=== PATIENT | female | born 1985 | race Two or more races ===

== ENCOUNTER 2017-03-11 05:11 | Day surgery (SDC) | payer OTHER ==
[2017-03-11] VITALS (11 sets, daily range): BP systolic 120–147; BP diastolic 72–81; PULSE 58–72; RESP 10–18; Ht 165.1 cm; Wt 87.2 kg
[~2017-03-11] VITALS: Ht 165.1 cm; Wt 87.2 kg
[2017-03-11] MEDS ORDERED: HYDR200T5 PO (06:54)
[2017-03-11] MEDS ORDERED: SULF1TAB31 PO (06:54)
[2017-03-11] MEDS ORDERED: SOD CHLORIDE 0.9% 1,000 ML IV SCH (06:55)
--- NOTE | 2017-03-11 06:55 | HPN ---
Date/Time of Note Date/Time of Note DATE: 03/11/17 TIME: 06:54 Interval H&P Admission Note Pt. seen H&P reviewed: No system changes LULA WYATT MD Mar 11, 2017 06:54
[2017-03-11] MEDS ORDERED: ONDANSETRON 4 MG INJ IV PRN (07:00)
[2017-03-11] MEDS ORDERED: OXYCODONE/ACETAMINOPHEN (5/325) TAB PO PRN ×2 (07:00)
[2017-03-11] MEDS ORDERED: CEFAZOLIN 1 GM INJ ONE (07:00)
[2017-03-11] MEDS ORDERED: morphine 2 MG INJ IV PRN (07:00)
[2017-03-11] MEDS ORDERED: MIDAZOLAM 1 MG/ML 2 ML INJ ONE (07:05)
[2017-03-11] MEDS ORDERED: ROPIVACAINE 0.5 % 30 ML VIAL ONE ×3 (07:07→11:02)
[2017-03-11] MEDS ORDERED: POLYMYXIN/BACITRACIN 1L IRRIG ONE ×2 (09:21→10:06)
[2017-03-11] MEDS ORDERED: POVIDONE IODINE 10% 28.4 GM OINT ONE ×2 (09:21→11:02)
[2017-03-11] MEDS ORDERED: FENTAnyl 50 MCG/ML VIAL ONE ×2 (10:02→11:51)
[2017-03-11] MEDS ORDERED: ONDANSETRON 4 MG INJ ONE (11:27)
[2017-03-11] MEDS ORDERED: PROPOFOL 20 ML ONE (11:28)
[2017-03-11] MEDS ORDERED: LIDOCAINE 2% (SDV) 5 ML INJ ONE (11:28)
[2017-03-11] MEDS ORDERED: GLYCOPYRROLATE 1 MG INJ ONE (11:28)
[2017-03-11] MEDS ORDERED: ROCURONIUM 50 MG INJ ONE (11:28)
[2017-03-11] MEDS ORDERED: NEOSTIGMINE 3 MG/3 ML SYRINGE ONE (11:28)
--- NOTE | 2017-03-11 11:31 | RADRPT ---
PROCEDURE: Intraoperative imaging of the left ankle with fluoroscopy. CLINICAL INDICATION: Left ankle pain. Intraoperative. TECHNIQUE: 3 images of the left ankle were obtained in the operating room with an image intensifie r. No radiologist was in attendance. Fluoroscopy time is 0.6 minutes. COMPARISON: No prior study is available for comparison. FINDINGS: Surgical instruments are noted overlying the left ankle. Images demonstrate 2 cannulated screws transfixing an osteotomy of the posterior calcaneus. IMPRESSION: 1. Intraoperative imaging of the left ankle. RPTAT: QQ .Priyank Allison MD, MD Date Time Electronically viewed and signed by .Priyank Allison MD, MD on 03/11/2017 11:30 .R/
--- NOTE | 2017-03-11 11:33 | RADRPT ---
PROCEDURE: Intraoperative imaging of the left foot with fluoroscopy. CLINICAL INDICATION: Left foot pain. Intraoperative. TECHNIQUE: 2 images of the left foot were obtained in the operating room with an image intensifier . No radiologist was in attendance. Fluoroscopy time is 0.6 minutes. COMPARISON: No prior study is available for comparison. FINDINGS: Images demonstrate surgical instruments overlying the left foot. A surgical screw was placed in the navicular medially. IMPRESSION: 1. Intraoperative imaging of the left foot. RPTAT: QQ .Priyank Allison MD, MD Date Time Electronically viewed and signed by .Priyank Allison MD, on 03/11/2017 11:33 .R/
--- NOTE | 2017-03-11 11:54 | OPPN ---
Date/Time of Note Date/Time of Note DATE: 03/11/17 TIME: 11:50 Operative Report Preoperative Diagnosis L foot PTTI, accessory navicular Postoperative Diagnosis same Operation/Procedure Performed 1. Left foot excision accessory navicular 2. Medial calcaneal osteotomy with screw fixation Surgeon see signature line administrative support assistant MD Sonia Anesthesia: general Estimated blood loss: 0 - 10 ml's Transfusion Required none Specimen Accessory navicular bone Grafts/Implants none Complications none LULA WYATT MD Mar 11, 2017 11:54
[2017-03-11] MEDS: FENTAnyl 50 MCG/ML VIAL IV PRN ×2 (12:00→12:09)
[2017-03-11] MEDS ORDERED: HYDROmorphONE (0.2 MG/ML) 10ML SYG IV ONE (12:03)
[2017-03-11] MEDS: HYDROmorphONE (0.2 MG/ML) 10ML SYG IV PRN ×3 (12:09→12:22)
--- NOTE | 2017-03-11 15:46 | OPR ---
DATE OF OPERATION: 03/11/2017 PREOPERATIVE DIAGNOSES: 1. Painful accessory navicular, left foot with posterior tibial tendinosis. 2. Planovalgus hindfoot. POSTOPERATIVE DIAGNOSES: 1. Painful accessory navicular with spurs along the talonavicular joint. 2. Posterior tibial tendinosis, but no obvious tears. 3. Planovalgus hindfoot. SURGERY: 1. Left medial sliding calcaneal osteotomy with screw fixation. 2. Debridement posterior tibial tendon and tenosynovectomy. 3. Excision accessory navicular and spurs along the navicular. 4. Advance posterior tibial tendon with a suture anchor into the navicular remaining bed. 5. Use of fluoroscopy to verify the excision of the accessory navicular and position of the anchor. 6. Short-leg cast. SURGEON: Lula Ritter MD. BAKERY MACHINE MECHANIC SUPERVISOR: Jonh Scott. ANESTHESIA: General with popliteal block. TOURNIQUET TIME: 1. Equals 47 minutes. 2. Equals 57 minutes. Complex and difficult procedure requiring the patient to be placed in the lateral position on a nielson bag to do the first part and everything needed to be removed, taking down and the patient needed to be reprepped and draped for the second part. Because of this, this added an additional 60 minutes o f time to the procedure (22). DESCRIPTION OF PROCEDURE: The patient taken to the operating room and placed in supine position. S atisfactory popliteal block was given. Satisfactory general anesthesia was administered, 2 grams An cef given intravenously. Patient was rolled on a beanbag secured with axillary pillows. All areas were carefully padded under the right lateral decubitus position. The left leg was prepped and drap ed in the usual manner. Using the fluoroscope, we marked the skin, the angle of our incision. Inci shashank was made through the skin down to subcutaneous tissue. The periosteum was lifted up over the a sherman of our osteotomy. We verified the position of our osteotomy again with a guide pin and marked t he bone. An oscillating saw was used to saw through almost all the bone and then the osteotome. Th in osteotomes were used to complete the osteotomy. A laminar water safety teacher was used to spread the bone a way from each other and released the tissue medially. Very carefully and with extreme caution. The heel was then medialized 8-9 mm and then fixed with a 4.5 and a 10.3 AO cannulated screws using the fluoroscope. The 4.5 guide pin was placed first. We verified good position in AP and lateral posi tions and drilled it and put the screw in. The same thing was done with a 7.3 guide pin, verified t he position then drilled and put the screw in. Excellent compression was obtained with good fixatio n. The wounds irrigated with antibiotic solution. Power rasp was used to remove the remaining bony edge. Tourniquet was released, bleeders were coagulated, wounds irrigated with antibiotic solution . Subcutaneous tissue was closed with 2-0 and 3-0 undyed Vicryl, and the skin with 4-0 black nylon. A small compression dressing was applied. The drapes were removed. Everything was taken down. T he beanbag was removed from the patient, the patient was repositioned in the supine position with th e leg externally rotated. The left leg was then prepped and draped in the usual manner. Incision was made from the tip of the medial malleolus to distal to the naviculocuneiform joint. Dissection carried down to subcutaneous tissue. Flaps were made and then retracted with 3-0 undyed Vicryl. The posterior tibial tendon sh eath was opened, had some tenosynovitis, but the tendon itself looked completely intact. No obvious tears were seen. It was felt we did not have to do an FDL transfer. Staying in the dorsal portion of the accessory navicular, which was quite prominent and peeled off the attachment of the posterio r tibial tendon down to the accessory navicular reflected inferiorly. Also left a cuff of tissue do rsally and reflected that more laterally there was a very large accessory navicular and was quite lo ose. Using sharp dissection it was removed in total. There was still some spurs and bony prominenc e along the navicular. Using the fluoroscope, we removed the remaining bone and then used a power r asp to smooth and contour the edges. This was verified under the fluoroscope as well. A Super Revo screw was then inserted by punching the hole, checking the position under fluoroscopy a nd inserting it with 2 screws. The #2 suture was then weaved through the posterior tibial tendon di stal to proximal with the foot inverted and plantar flexed. The sutures were tied. Excellent fixat ion was obtained. Remaining cuff of tissue was then reapproximated with 0 PDS. A standard sheath w as closed more proximally with 2-0 PDS running. Tourniquet was released, bleeders were coagulated, wounds irrigated with antibiotic solution. Final fluoroscopic view showed good position and alignme nt of the suture anchor in the navicular and AP and lateral planes, good position and alignment of t he calcaneal osteotomy and screws. Tourniquet was released. Everything was irrigated clear with an tibiotics. Subcutaneous tissue was closed with 2-0 and 3-0 undyed Vicryl, and skin with 4-0 black n ylon. Compression applied as well as short-leg cast in plantar flexion, inversion. Interprocedure sponge and needle count was correct. The patient tolerated the procedure well and the cast and was sent to the recovery room. COMMERCIAL ARTIST LETTERING ORTHOPEDIC SURGEON DURING THE PROCEDURE, COMMERCIAL ARTIST LETTERING ORTHOPEDIC SURGEON WAS USED AT [facility] THE COMMERCIAL ARTIST LETTERING HELPED WITH RETRACTION AND HELPED WITH INSERTING THE ANCHOR AND THE COMMERCIAL ARTIST LETTERING ALS O INSERTED THE SCREWS WHILE I HELD THE CALCANEAL OSTEOTOMY, IT SLID INTO THE PROPER POSITION. WITHO UT A SKILLED ORTHOPEDIC SURGEON ASSISTING ME, THIS COULD NOT HAVE BEEN DONE; THEREFORE, SHOULD BE CO MPENSATED APPROPRIATELY. Dictated By: LULA SMITH/MARIA DE JESUS Conf#: [id number] DID#: [id number]
== END 2017-03-11 13:35 | disposition home or self-care (01) ==
LOC: SDS 05:11
PROVIDERS: ATTEND Orthopaedic Surgery
DX: M76.822 Posterior tibial tendinitis, left leg (principal); M77.32 Calcaneal spur, left foot
CPT/HCPCS: 28120; 28200; 73610; 73620; C1713; J0690; J1170; J2250; J2405; J2710; J2795; J3010